=== PATIENT | female | born 1980 | race Hispanic/Latino ===

== ENCOUNTER 2019-09-28 11:57 | Inpatient (IN) | payer BC ==
[~2019-09-28] VITALS: Ht 152.4 cm; Wt 80.3 kg
--- OUTSIDE RECORDS SUMMARY | 2019-09-28 12:00 | XMS REPORT ---
Author Author [facility] Address Unknown Phone Unavailable Care Team Providers Care Sheriff Officer Name Role Phone Unavailable Unavailable Payers Payer Name Policy Type Policy Number Effective Date Expiration Date Problems This patient has no known problems. Allergies, Adverse Reactions, Alerts Allergy Name Allergy Type Status Severity Reaction(s) Onset Date Inactive Date Treating Clinician Comments Shellfish DA Active SV 2013-12-25 00:00:00 iodine DA Active SV 2013-12-25 00:00:00 adhesive DA Active OK 2013-12-25 00:00:00 Medications This patient has no known medications. Results Test Description Test Time Test Comments Text Results Atomic Results Result Comments BASIC METABOLIC PANEL 2018-12-18 20:20:00 SODIUM (test code=NA) 141 mmol/L 135-148 POTASSIUM (test code=K) 3.7 mmol/L 3.5-5.1 CHLORIDE (test code=CL) 104 mmol/L 101-109 CARBON DIOXIDE (test code=CO2) 27.3 mmol/L 21-32 ANION GAP (test code=GAP) 13 mmol/L 10-20 GLUCOSE (test code=GLU) 100 mg/dL 74-106 BLOOD UREA NITROGEN (test code=BUN) 10 mg/dL 3-21 GLOMERULAR FILTRATION RATE (test code=GFR) > 60 mL/min >=60 Estimated GFR by using Modified MDRD formula.Chronic kidney disease is defined as either kidney damageor GFR <60 mL/min/1.73 m2 for >3 months. CREATININE (test code=CREAT) 0.84 mg/dL 0.55-1.3 BUN/CREATININE RATIO (test code=BUN/CREA) 11.9 10-20 CALCIUM (test code=CA) 8.5 mg/dL 8.4-10.2 [id number] 20:20:00* Test Item Value Reference Range Comments TROPONIN-I (test code=TROPI) <0.015 ng/mL 0.00-0.056 - XR CHEST 1 [id number] 20:13:00 Name: RAYMON MILLS [facility] : 1980 Age/S:38 /F [address] [facility] Unit#:[id number] Loc: [place] [address] Phys: Altaf Cali MD Dis Date: PHONE #: [phone] Status: REG ER FAX #: [phone] Exam Date: 12/18/2018 Reason: CHEST PAIN EXAMS: CPT CODE: [id number] XR CHEST 1 V [id number] REASON FOR EXAM: CHEST PAIN EXAM ORDER DATE: 12/18/2018 7:43 PM Ordering MLan: Altaf Cali MD PROCEDURE: - XR CHEST 1 V COMPARISON: FINDINGS: Portable AP frontal view of the chest obtained at 8:02 PM shows clear lungs. There is no evidence of consolidation. There is no evidence of effusion. The heart size is within normal limits. Pulmonary vasculatures are unremarkable. IMPRESSION: No active disease. at 2012 Reported and signed by: Jay Rice M.D. CC: Altaf Cali MD Technologist: SHIRA ZHANG RT(R),CT Trnscrpt Data: 12/18/2018 (2012) [email or web address] Orig Print D/T: S: 12/18/2018 (2015) PAGE 1 Signed Report BASIC METABOLIC [id number] 20:09:00* Test Item Value Reference Range Comments SODIUM (test code=NA) 141 mmol/L 135-148 POTASSIUM (test code=K) 3.7 mmol/L 3.5-5.1 CHLORIDE (test code=CL) 104 mmol/L 101-109 CARBON DIOXIDE (test code=CO2) 27.3 mmol/L 21-32 ANION GAP (test code=GAP) 13 mmol/L 10-20 GLUCOSE (test code=GLU) 100 mg/dL 74-106 BLOOD UREA NITROGEN (test code=BUN) 10 mg/dL 3-21 GLOMERULAR FILTRATION RATE (test code=GFR) > 60 mL/min >=60 Estimated GFR by using Modified MDRD formula.Chronic kidney disease is defined as either kidney damageor GFR <60 mL/min/1.73 m2 for >3 months. CREATININE (test code=CREAT) 0.84 mg/dL 0.55-1.3 BUN/CREATININE RATIO (test code=BUN/CREA) 11.9 10-20 CALCIUM (test code=CA) 8.5 mg/dL 8.4-10.2 [id number] 20:09:00* Test Item Value Reference Range Comments TROPONIN-I (test code=TROPI) ng/mL 0-0.045 CBC W/O [id number] 20:00:00* Test Item Value Reference Range Comments WHITE BLOOD CELL (test code=WBC) 10.1 K/mm3 4.5-12.5 RED BLOOD CELL (test code=RBC) 4.70 mill/mm3 3.7-5.2 HEMOGLOBIN (test code=HGB) 13.6 gram/dL 11.5-15.5 HEMATOCRIT (test code=HCT) 40.8 % 36.0-46.0 MEAN CELL VOLUME (test code=MCV) 86.8 fL 80-98 MEAN CELL HGB (test code=MCH) 28.9 picogram 27.0-33.0 MEAN CELL HGB CONCETRATION (test code=MCHC) 33.3 gram/dL 33.0-36.0 RED CELL DISTRIBUTION WIDTH (test code=RDW) 13.6 % 11.6-16.2 RED CELL DISTRIBUTION WIDTH SD (test code=RDW-SD) 41.9 fL 39.1-52.0 PLATELET COUNT (test code=PLT) 308 K/mm3 150-450 MEAN PLATELET VOLUME (test code=MPV) 9.9 fL 6.7-11.0
[2019-09-28] MEDS ORDERED: SODIUM CHLORIDE 0.9% 1000ML 1,000 ML IV STA ×3 (12:05→15:20)
[2019-09-28] MEDS ORDERED: ONDANSETRON HCL INJ 2MG/ML 2ML 2 MG/ML VIAL IV ONE ×2 (12:05→12:27)
[2019-09-28] MEDS ORDERED: DICYCLOMINE HCL 20 MG/2 ML VIAL IM ONE (12:15)
[2019-09-28 12:20] LABS: BASOPHILS # (AUTO) 0.1 (0.0-0.1); BASOPHILS % 0.4 % (0.0-1.0); EOSINOPHILS # (AUTO) 0.1 (0.0-0.4); EOSINOPHILS % 0.4 % (0.0-6.0); HEMATOCRIT 41.5 % (34.2-44.1); HEMOGLOBIN 13.8 g/dL (12.0-16.0); LYMPHOCYTES # (AUTO) 1.3 (1.0-3.2); MEAN CORPUSCULAR HEMOGLOBIN 28.8 pg (28-32); MEAN CORPUSCULAR HGB CONC 33.3 g/dL (31-35); MEAN CORPUSCULAR VOLUME 86.5 fL (81-99); MONOCYTES % 7.7 % (4.4-11.3); NEUTROPHILS # (AUTO) 10.7 (2.1-6.9); PLATELET COUNT 267 x10e3/uL (140-360); RED CELL DISTRIBUTION WIDTH 13.1 % (11.7-14.4)
[2019-09-28 12:21] LABS: BILIRUBIN,URINE NEGATIVE (NEGATIVE); KETONES,URINE NEGATIVE (NEGATIVE); LEUKOCYTE ESTERASE ,URINE TRACE (NEGATIVE); NITRITE,URINE NEGATIVE (NEGATIVE); PROTEIN,URINE DIPSTICK TRACE (NEGATIVE); URINE UROBILINOGEN 0.2 mg/dL (0.2 - 1)
[2019-09-28 12:22] LABS: CLARITY,URINE HAZY (CLEAR); COLOR,URINE ORANGE (YELLOW)
[2019-09-28 12:28] LABS: PREGNANCY TEST, URINE NEGATIVE (NEGATIVE)
[2019-09-28 12:30] LABS: BACTERIA,URINE FEW /HPF; EPITHELIAL CELLS,URINE FEW /LPF; RBC,URINE >50 /HPF (0-5); WBC,URINE (MAN) 0-5 /HPF (0-5)
[2019-09-28 12:44] LABS: ALANINE AMINOTRANSFERASE 18 IU/L (0-55); ALBUMIN 3.9 g/dL (3.5-5.0); ALBUMIN/GLOBULIN RATIO 1.1 (0.8-2.0); ALKALINE PHOSPHATASE 82 IU/L (40-150); ANION GAP 15.6 mmol/L (8-16); BLOOD UREA NITROGEN 7 mg/dL (7-26); BUN/CREATININE RATIO 9 (6-25); CARBON DIOXIDE 22 mmol/L (22-29); CHLORIDE 102 mmol/L (98-107); CREATININE, SERUM 0.75 mg/dL (0.57-1.11); EST GLOMERULAR FILTRATION RATE > 60 ML/MIN (60-); GLUCOSE 104 mg/dL (74-118); POTASSIUM 3.6 mmol/L (3.5-5.1); SODIUM 136 mmol/L (136-145)
[2019-09-28 12:46] LABS: AMYLASE 55 U/L (25-125); LIPASE 26 U/L (8-78)
--- NOTE | 2019-09-28 14:54 | Diagnostic Imaging Report ---
EXAMINATION: CT of the abdomen and pelvis without contrast. TECHNIQUE: Spiral CT images of the abdomen and pelvis were performed from the lung bases to the lesser trochanters. No intravenous contrast was given due to history of iodine allergy. Dilute Gastrografin was given as oral contrast.. Coronal and sagittal reformatted images were obtained. COMPARISON: None. CLINICAL HISTORY:Abdominal pain, nausea, hurts all over DISCUSSION: ABSENCE OF INTRAVENOUS CONTRAST DECREASES SENSITIVITY FOR DETECTION OF FOCAL LESIONS AND VASCULAR PATHOLOGY. ABDOMEN/PELVIS: LOWER THORAX: Unremarkable. HEPATOBILIARY: No focal hepatic lesions. No intra or extrahepatic biliary ductal dilation. GALLBLADDER: Cholecystectomy clips. SPLEEN: No splenomegaly. PANCREAS: No focal masses or ductal dilatation. ADRENALS: No adrenal nodules. KIDNEYS/URETERS: No renal or ureteral calculi, hydronephrosis or obstruction. No contour abnormalities or significant perinephric stranding. PELVIC ORGANS/BLADDER: Bladder and uterus are unremarkable. No adnexal masses. PERITONEUM/RETROPERITONEUM: No free air or fluid. LYMPH NODES: No intra-abdominal,retroperitoneal, pelvic or inguinal lymphadenopathy. VESSELS: Unremarkable for noncontrast exam. GI TRACT: Diverticulosis of the descending and sigmoid colon. There is an approximately 6 cm segment of the proximal to mid sigmoid colon, which shows moderate wall thickening and moderate surrounding fat stranding (series 2, images 63-67, sagittal image. No foci of extraluminal air or adjacent well-defined fluid collections. Rest of the bowel shows no wall thickening, dilation or obstruction. Appendix is well identified and normal in caliber. BONES AND SOFT TISSUES: No aggressive lytic lesions. Soft tissues are grossly unremarkable. IMPRESSION: 1. Findings consistent with acute, uncomplicated diverticulitis of the proximal to mid sigmoid colon. No perforation or adjacent abscess formation. Signed by: Dr. Mario Lima M.D. on 09/28/2019 2:50 PM
[2019-09-28] MEDS ORDERED: MORPHINE SULFATE 2 MG/ML SYR 1ML IV ONE (14:58)
[2019-09-28] MEDS ORDERED: METRONIDAZOLE 500MG/NS 100ML 100 ML IV SCH ×2 (15:30→18:00)
[2019-09-28] MEDS ORDERED: PIPER-TAZ 3.375 GM 50 ML IV SCH ×2 (15:30→18:00)
[2019-09-28] MEDS ORDERED: ONDANSETRON HCL INJ 2MG/ML 2ML 2 MG/ML VIAL IV PRN (15:30)
[2019-09-28] MEDS ORDERED: MORPHINE SULFATE 2 MG/ML SYR 1ML IV PRN (15:30)
[2019-09-28] MEDS ORDERED: MORPHINE SULFATE INJ 4 MG/ML INJ 1ML IV PRN (15:45)
[2019-09-28] MEDS ORDERED: KETOROLAC TROMETHAMINE 30 MG/ML VIAL IV ONE (15:59)
[2019-09-28] MEDS ORDERED: ACETAMINOPHEN 325 MG TAB ONE (16:10)
[2019-09-28] MEDS ORDERED: ACETAMINOPHEN 325 MG TAB PO PRN (16:15)
[2019-09-28 17:42] VITALS: BP 120/71
[2019-09-28] MEDS: SODIUM CHLORIDE 0.9% 1000ML 1,000 ML IV SCH (17:55)
[2019-09-28 18:13] VITALS: BP 97/54
[2019-09-28 18:56] LABS: CREATINE KINASE MB 0.2 ng/mL (0-5.0)
[2019-09-28 20:00] VITALS: BP 102/57
[2019-09-28 20:07] VITALS: BP 102/79
[2019-09-28] MEDS: PIPER-TAZ 3.375 GM 50 ML IV SCH (21:12)
[2019-09-28] MEDS: METRONIDAZOLE 500MG/NS 100ML 100 ML IV SCH (22:06)
[2019-09-29] VITALS (8 sets, daily range): BP systolic 98–112; BP diastolic 54–64
[2019-09-29] MEDS: SODIUM CHLORIDE 0.9% 1000ML 1,000 ML IV SCH (02:02)
[2019-09-29 02:28] LABS: CREATINE KINASE 48 IU/L (29-168)
[2019-09-29] MEDS: PIPER-TAZ 3.375 GM 50 ML IV SCH ×4 (03:28→21:36)
[2019-09-29] MEDS: METRONIDAZOLE 500MG/NS 100ML 100 ML IV SCH ×4 (04:17→20:32)
[2019-09-29 06:06] LABS: BASOPHILS # (AUTO) 0.1 (0.0-0.1); BASOPHILS % 0.4 % (0.0-1.0); EOSINOPHILS # (AUTO) 0.1 (0.0-0.4); HEMOGLOBIN 11.5 g/dL (12.0-16.0); LYMPHOCYTES % 16.3 % (18.0-39.1); MEAN CORPUSCULAR HEMOGLOBIN 28.5 pg (28-32); MEAN CORPUSCULAR HGB CONC 31.9 g/dL (31-35); MEAN CORPUSCULAR VOLUME 89.1 fL (81-99); MONOCYTES # (AUTO) 0.9 (0.2-0.8); MONOCYTES % 7.6 % (4.4-11.3); NEUTROPHILS # (AUTO) 9.1 (2.1-6.9); NEUTROPHILS % 74.3 % (38.7-80.0); PLATELET COUNT 227 x10e3/uL (140-360); RED BLOOD COUNT 4.04 x10e6/uL (3.6-5.1); RED CELL DISTRIBUTION WIDTH 13.2 % (11.7-14.4)
[2019-09-29] MEDS ORDERED: MORPHINE SULFATE INJ 4 MG/ML INJ 1ML IV PRN (06:45)
[2019-09-29] MEDS ORDERED: TRAMADOL HCL 50 MG TAB PO PRN (06:45)
[2019-09-29] MEDS ORDERED: SIMETHICONE 80 MG CHEW PO PRN (06:45)
[2019-09-29] MEDS ORDERED: HYDRALAZINE HCL 20 MG/ML VIAL IV PRN (06:45)
[2019-09-29 06:51] LABS: ALANINE AMINOTRANSFERASE 52 IU/L (0-55); ALKALINE PHOSPHATASE 76 IU/L (40-150); ANION GAP 11.4 mmol/L (8-16); BLOOD UREA NITROGEN 5 mg/dL (7-26); BUN/CREATININE RATIO 7 (6-25); CALCIUM 7.8 mg/dL (8.4-10.2); CARBON DIOXIDE 22 mmol/L (22-29); CHLORIDE 107 mmol/L (98-107); CREATININE, SERUM 0.69 mg/dL (0.57-1.11); EST GLOMERULAR FILTRATION RATE > 60 ML/MIN (60-); GLUCOSE 103 mg/dL (74-118); POTASSIUM 3.4 mmol/L (3.5-5.1); SODIUM 137 mmol/L (136-145)
--- NOTE | 2019-09-29 06:52 | NUR ---
CAlled placed for consultation with Dr. Rob Castillo x3 No answer.
[2019-09-29] MEDS ORDERED: POTASSIUM CHLORIDE 20 MEQ TAB CR PO ONE (08:00)
[2019-09-29] MEDS: FAMOTIDINE 20 MG TAB PO SCH ×2 (08:32→16:45)
[2019-09-29 10:54] LABS: CREATINE KINASE MB 0.3 ng/mL (0-5.0)
[2019-09-29 12:34] LABS: FERRITIN 84.11 ng/mL (4.63-204.00)
[2019-09-29] MEDS: ACETAMINOPHEN 325 MG TAB PO PRN (19:19)
[2019-09-30] VITALS (8 sets, daily range): BP systolic 98–111; BP diastolic 56–70
--- NOTE | 2019-09-30 | NUR ---
Patient refused SCD.
[2019-09-30] MEDS: ACETAMINOPHEN 325 MG TAB PO PRN ×2 (00:23→14:56)
[2019-09-30] MEDS: METRONIDAZOLE 500MG/NS 100ML 100 ML IV SCH ×4 (02:59→20:14)
[2019-09-30] MEDS ORDERED: SODIUM CHLORIDE 0.9% 250ML 250 ML ONE (03:05)
[2019-09-30 03:32] LABS: BASOPHILS # (AUTO) 0.1 (0.0-0.1); BASOPHILS % 0.6 % (0.0-1.0); EOSINOPHILS # (AUTO) 0.3 (0.0-0.4); EOSINOPHILS % 3.1 % (0.0-6.0); HEMATOCRIT 36.9 % (34.2-44.1); HEMOGLOBIN 12.1 g/dL (12.0-16.0); LYMPHOCYTES # (AUTO) 2.8 (1.0-3.2); LYMPHOCYTES % 30.9 % (18.0-39.1); MEAN CORPUSCULAR HGB CONC 32.8 g/dL (31-35); MEAN CORPUSCULAR VOLUME 88.5 fL (81-99); MONOCYTES # (AUTO) 0.6 (0.2-0.8); MONOCYTES % 6.3 % (4.4-11.3); NEUTROPHILS # (AUTO) 5.2 (2.1-6.9); NEUTROPHILS % 58.8 % (38.7-80.0); PLATELET COUNT 249 x10e3/uL (140-360); RED BLOOD COUNT 4.17 x10e6/uL (3.6-5.1); RED CELL DISTRIBUTION WIDTH 13.3 % (11.7-14.4)
[2019-09-30 03:48] LABS: ANION GAP 11.5 mmol/L (8-16); BLOOD UREA NITROGEN < 5 mg/dL (7-26); CALCIUM 8.6 mg/dL (8.4-10.2); CARBON DIOXIDE 21 mmol/L (22-29); CHLORIDE 109 mmol/L (98-107); CHOL/HDL RATIO 3.5 (3.0-3.6); CHOLESTEROL 133 MD/DL (0-199); CREATININE, SERUM 0.66 mg/dL (0.57-1.11); EST GLOMERULAR FILTRATION RATE > 60 ML/MIN (60-); GLUCOSE 102 mg/dL (74-118); HDL CHOLESTEROL 38 MG/DL (40-60); LDL CHOLESTEROL 89 MG/DL (60-130); POTASSIUM 3.5 mmol/L (3.5-5.1); SODIUM 138 mmol/L (136-145); TRIGLYCERIDES 31 MG/DL (0-149)
[2019-09-30 03:52] LABS: BUN/CREATININE RATIO 8 (6-25)
[2019-09-30] MEDS: PIPER-TAZ 3.375 GM 50 ML IV SCH ×4 (04:00→21:11)
[2019-09-30 04:09] LABS: THYROID STIMULATING HORMONE 1.523 uIU/mL (0.350-4.940)
--- NOTE | 2019-09-30 07:10 | NUR ---
PATIENT IS ALERT AND STABLE CONDITION WITH NO S/S OF RESPIRATORY DISTRESS- NO PAIN VOICED. TELEMETRY APPLIED. MOTHER PRESENT IN ROOM. CALL LIGHT IS WITHIN REACH, PATIENT INSTRUCTED TO CALL FOR ASSISTANCE NEEDED.
[2019-09-30] MEDS: FAMOTIDINE 20 MG TAB PO SCH ×2 (08:41→16:43)
[2019-09-30] MEDS: IRON-VITAMIN-MINERAL CAPSULE PO SCH ×2 (08:42→16:43)
--- NOTE | 2019-09-30 19:12 | NUR ---
PATIENT IN STABLE CONDITION WITH NO S/S OF RESPIRATORY DISTRESS. NO PAIN VOICED. TELEMETRY APPLIED. PRESENT IN ROOM. CALL LIGHT IS WITHIN REACH, PATIENT INSTRUCTED TO CALL FOR ASSISTANCE NEEDED. REPORT GIVEN TO ONCOMING NURSE.
[2019-10-01] VITALS: BP 97/54
[2019-10-01] MEDS: PIPER-TAZ 3.375 GM 50 ML IV SCH (03:15)
[2019-10-01 03:50] LABS: BASOPHILS # (AUTO) 0.1 (0.0-0.1); BASOPHILS % 0.6 % (0.0-1.0); EOSINOPHILS # (AUTO) 0.3 (0.0-0.4); EOSINOPHILS % 3.9 % (0.0-6.0); HEMATOCRIT 35.4 % (34.2-44.1); HEMOGLOBIN 11.6 g/dL (12.0-16.0); LYMPHOCYTES # (AUTO) 2.7 (1.0-3.2); LYMPHOCYTES % 33.4 % (18.0-39.1); MEAN CORPUSCULAR HEMOGLOBIN 28.8 pg (28-32); MEAN CORPUSCULAR HGB CONC 32.8 g/dL (31-35); MEAN CORPUSCULAR VOLUME 87.8 fL (81-99); MONOCYTES # (AUTO) 0.5 (0.2-0.8); MONOCYTES % 6.2 % (4.4-11.3); NEUTROPHILS # (AUTO) 4.5 (2.1-6.9); NEUTROPHILS % 55.5 % (38.7-80.0); PLATELET COUNT 269 x10e3/uL (140-360); RED BLOOD COUNT 4.03 x10e6/uL (3.6-5.1); RED CELL DISTRIBUTION WIDTH 13.2 % (11.7-14.4)
[2019-10-01 04:00] VITALS: BP 108/53
[2019-10-01 04:06] LABS: ANION GAP 13.6 mmol/L (8-16); BLOOD UREA NITROGEN 7 mg/dL (7-26); BUN/CREATININE RATIO 10 (6-25); CALCIUM 8.5 mg/dL (8.4-10.2); CARBON DIOXIDE 22 mmol/L (22-29); CHLORIDE 109 mmol/L (98-107); CREATININE, SERUM 0.71 mg/dL (0.57-1.11); EST GLOMERULAR FILTRATION RATE > 60 ML/MIN (60-); GLUCOSE 101 mg/dL (74-118); POTASSIUM 3.6 mmol/L (3.5-5.1); SODIUM 141 mmol/L (136-145)
[2019-10-01] MEDS: METRONIDAZOLE 500MG/NS 100ML 100 ML IV SCH (04:07)
[2019-10-01] MEDS ORDERED: CIPRO500 MG PO ×2 (06:00→06:04)
[2019-10-01] MEDS ORDERED: METRONIDAZOLE500 MG PO (06:00)
--- NOTE | 2019-10-01 07:15 | NUR ---
PATIENT IS ALERT AND STABLE CONDITION WITH NO S/S OF RESPIRATORY DISTRESS. NO PAIN VOICED. FAMILY MEMBER PRESENT IN ROOM. CALL LIGHT IS WITHIN REACH, PATIENT INSTRUCTED TO CALL FOR ASSISTANCE NEEDED.
[2019-10-01] MEDS: FAMOTIDINE 20 MG TAB PO SCH (07:30)
[2019-10-01 08:28] VITALS: BP 108/53
--- NOTE | 2019-10-01 09:15 | NUR ---
PATIENT DISCHARGE HOME- PATIENT OFF THE UNIT AT 0858 PER AMBULATION ACCOMPANIED BY PCT TO THE FRONT LOBBY. PATIENT IN STABLE CONDITION WITH NO S/S OF RESPIRATORY DISTRESS. NO PAIN VOICED. IV REMOVED WITH TIP INTACT. DISCHARGE TEACHING, INSTRUCTIONS, AND MEDICATIONS GIVEN TO THE PATIENT. ALL PERSONAL ITEMS TAKEN WITH THE PATIENT AND HER .
--- NOTE | 2019-10-02 01:08 | Discharge Summary ---
ADMISSION DIAGNOSES: Diverticulitis; obesity with a BMI of 34.6; urinary tract infection with sepsis, present on admission. DISCHARGE DIAGNOSES: Diverticulitis; obesity with a BMI of 34.6; urinary tract infection with sepsis, present on admission; rule out Clostridium difficile; rule out urinary tract infection . HISTORY: None. SURGICAL HISTORY: Cholecystectomy, TMA, x2, sinus surgery, tubal ligation. FAMILY HISTORY: The patient's mother, father, and brother have diabetes. The patient's aunt had cancer. SOCIAL HISTORY: Noncontributory. HOSPITAL COURSE: A 38-year-old female admits with complaints of abdominal cramping that began 2 days ago. It is described as dull and generalized. She had associated nausea, but denies vomiting, fever, and diarrhea. She also denies dysuria. She also says she is on her period, so she is unsure she has hematuria. On admission, CT of the abdomen and pelvis showed findings consistent with acute uncomplicated diverticulitis of the proximal to mid sigmoid colon. No perforation or adjacent abscess formation. Urine culture came back negative. Blood culture was negative. Clostridium difficile was negative. After a few days of IV antibiotics, the patient is feeling much better and the diarrhea has stopped. She will discharge home with 5 more days of Cipro and Flagyl. The patient understands discharge instructions and agrees to plan. Vital signs stable, the patient afebrile. Dictated by Emilie Chen NP MD CAROLE Valles/YVETTE /[id number]
== END 2019-10-01 08:58 | disposition home or self-care (01) | DRG 872 ==
LOC: ER 11:57 → ERHOLD 15:24 → EDBD 15:24 → MED/SURG3 17:14
PROVIDERS: ADMIT Internal Medicine; ATTEND Internal Medicine
DX: A41.9 Sepsis, unspecified organism (principal); K57.92 Diverticulitis of intestine, part unspecified, without perforation or abscess without bleeding; K57.32 Diverticulitis of large intestine without perforation or abscess without bleeding; N39.0 Urinary tract infection, site not specified; E66.9 Obesity, unspecified; Z68.34 Body mass index [BMI] 34.0-34.9, adult; D50.9 Iron deficiency anemia, unspecified
CPT/HCPCS: 36415; 74176; 80048; 80053; 80061; 81001; 81025; 82150; 82550; 82553; 82607; 82728; 83036; 83540; 83605; 83690; 84443; 84466; 84484; 85025; 85045; 87040; 87086; 87493; 93005; 99284; J0500; J1885; J2270; J2405; J2543; J7030; J7050

== ENCOUNTER → 2025-05-07 | Outpatient (REF) | payer OTHER ==
[~2025-05-07] MED LIST: CIPRO500 MG PO; METRONIDAZOLE500 MG PO
== END ==
LOC: US 14:32
PROVIDERS: ATTEND Family Medicine
DX: E04.9 Nontoxic goiter, unspecified (principal)
CPT/HCPCS: 76536